=== PATIENT | female | born 1985 | race Caucasian/White ===

== ENCOUNTER 2017-09-24 17:37 | Emergency (ER) | payer MEDICAID, OTHER ==
[~2017-09-24 17:37] MED LIST: PREN1CAP PO
--- NOTE | 2017-09-24 18:22 | PD ---
HPI Chief Complaint Patient fell at home and hit her stomach on a baby gate no bleeding noted Date Seen: Sep 24, 2017 Time Seen: 18:15 Travel History International Travel<30 Days: No Contact w/Intl Traveler<30Days: No Known Affected Area: No History of Present Illness HPI Patient is 32-year-old white female at [address] Basilio for care presents complaining of some abdominal pain after falling today and hitting her stomach on a baby gate. Patient's had no vaginal bleeding no leakage of fluid. Pain is in the right lower quadrant is where she was hit the gate hit her there but then she had abdominal pain from her in the epigastric area for about 15 minutes and then it has gotten better when she started for hospital it has decreased quite a bit now not so bad. heart tones in the 150s now Weeks Gestation: 17 Para: 1 : 3 Miscarriage: 1 History Obstetric History Obstetric History 1 vaginal delivery and one early loss Social History Alcohol Use: No Tobacco Use: No Substance Abuse: No Allergies-Medications (Allergen,Severity, Reaction): Coded Allergies: No Known Allergies (Unverified Adverse Reaction, Unknown, 07/09/17) Home Meds Reported Medications Vit W/ Fe Polysacch C (Vitafol Ultra 29-0.6-0.4-200 mg) 1 Cap Cap, PO for Vitamins, #30 06/09/16 Review of Systems General / Constitutional: No: Fever, Weight Gain, Chills, Other Eyes: No: Diploplia, Blurred Vision, Visual changes, Pain, Photophobia HENT: No: Headaches, Vertigo, Lightheadedness Cardiovascular: No: Irregular Rhythm, Chest Pain or Discomfort, Palpitations, Tachycardia, Syncope, Varicosities, Edema, Cyanosis Respiratory: No: Cough, Short of Breath, Other Gastrointestinal: Abdominal Pain, No: Nausea, Vomiting, Diarrhea Genitourinary: No: Decreased Urinary Output, Oliguria Musculoskeletal: No: Limited ROM, Weakness, Cramping, Edema, Pain Skin: No Rash, No Itching, No Dryness, No Lumps, No Change in Pigmentation, No Change in Nails, No Alopecia, No Lesions Neurologic: No: Weakness, Dizziness, Syncope, Focal Abnormalities, Coordination Problem, Headache, Slurred Speech, Seizures Psychiatric: No: Depression, Suicidal Ideations, Homicidal Ideation Endocrine: No: Heat Intolerance, Cold Intolerance, Polydipsia, Polyuria, Other Physical Exam Narrative GENERAL: Well-nourished, well-developed patient. SKIN: Warm and dry. HEAD: Normocephalic and atraumatic. EYES: No scleral icterus. No injection or drainage. ENT: No nasal drainage noted. Mucous membranes pink. Airway patent. NECK: Supple, trachea midline. No JVD. CARDIOVASCULAR: Regular rate and rhythm without murmurs, gallops, or rubs. RESPIRATORY: Breath sounds equal bilaterally. No accessory muscle use. BREASTS: Bilateral exam showed no masses , no retractions, no nipple discharge. ABDOMEN/GI: Abdomen soft, non-tender, bowel sounds present, no rebound, no guarding, no bruising or laceration no ecchymoses Gravid to [17-] weeks size Fundal Height: [17-] GENITOURINARY: External Genitalia: intact and normal in appearance BUS glands: [-] Cervix: [-post] Dilatation: [-0] Effacement: [thick-] Station: [-3] Membranes: [intact ] Uterine Contractions: [-none] FHT's: 150s EXTREMITIES: No cyanosis or edema. BACK: Nontender without obvious deformity. No CVA tenderness. NEUROLOGICAL: Awake and alert. Motor and sensory grossly within normal limits. Five out of 5 muscle strength in all muscle groups. Normal speech. Data Data Labs Urine dip is negative MDM Interpretation(s) Patient is 32-year-old white female at 17 weeks presents after a fall at home with some abdominal pain where she hit on a baby gate at home and some generalized abdominal pain for about 15-20 minutes after the fall. That pain was pretty bad at first but forced her to head toward the hospital but as she is gotten here and been here the pain is essentially gone away, she has had no bleeding or leakage of fluid. heart tones in the 150s. Cervix is closed thick and high. Plan Plan the patient be at home and use Tylenol liberally for pain, oral fluids for hydration, heating pad on low or hot bath is good for symptom relief. He is to follow-up with her OB provider. She is advised to return here though she begins to have vaginal bleeding Diagnosis Diagnosis: Primary Impression: Fall at home Additional Impression: 17 weeks gestation of Disposition: DISCHARGE HOME Condition: Stable Chambers,Bill L. II MD Sep 24, 2017 18:22
== END 2017-09-24 18:30 | disposition home or self-care (01) ==
LOC: HOBED 17:37
DX: O26.892 Other specified pregnancy related conditions, second trimester (principal); Z3A.17 17 weeks gestation of pregnancy
CPT/HCPCS: 99283

== ENCOUNTER → 2017-10-15 | Outpatient (CLI) | payer OTHER | LOC: HPND 08:53 | PROVIDERS: ATTEND Obstetrics & Gynecology | DX: O43.192 Other malformation of placenta, second trimester (principal); Z36.3 Encounter for antenatal screening for malformations | CPT/HCPCS: 76805 ==